=== PATIENT | female | born 1990 | race Caucasian/White ===

== ENCOUNTER 2016-10-22 20:28 | Inpatient (IN) | payer OTHER ==
[~2016-10-22] VITALS: Ht 162.6 cm; Wt 54.4 kg
[2016-10-23] VITALS (7 sets, daily range): BP systolic 93–116; BP diastolic 52–72
--- NOTE | 2016-10-23 01:00 | NUR ---
Pre-Assessment Note: Pt seen in intake office. Vitals noted: BP 116/72, HR 88, RR 18, SpO2 98%, T 97.8 Pt is in stable condition and will be admitted to [facility]. Unit rules and procedures explained. Pt verbalized understanding. Will continue assessment upon pt arrival
--- NOTE | 2016-10-23 01:20 | NUR ---
Admission Note: Pt arrived on the unit at 0120 and will be under the care of Dr. Barrios. Pt is a 26F, AOx4 without s/s of acute distress noted. Respirations even and unlabored. Pt denies any pain/discomfort at this time. Bowel sounds active x4 quadrants. Weight: 120lbs, Height: 5'4". Pt noted with NKA. Pt reported current Opiate/Benzo dependence: 1. Heroin: Pt uses at a rate of 1-2g of Heroin IV daily for the past year. Pt has been using Heroin for the past 8 years. Pt last used Heroin on 10/23/16 @ 0000. 2. Xanax: Pt uses at a rate of 2-6mg of Xanax PO daily for the past year. Pt has been using Xanax for the past 14 years. Pt last used Xanax on 10/22/16 @ 1000. 3. Methamphetamines: Pt uses at a rate of 0.5-1g of Methamphetamines daily for the past year. Pt has been using Methamphetamines for the past 4 years. Pt last used Methamphetamines on 10/23/16 @ 0000. Initial COWS was 2 and CIWA was 1. Pt stated that she had just used Heroin before admission and does not feel and withdrawal symptoms. Pt stated following regular diet at home. Pt brought no home medications. Pt stated she had no primary care physician, psychologist, or psychiatrist. Pt verbalized that she is in treatment because she is motivated to be clean for her future. Pt's past medical hx includes: Seizures (last in April 2016), Chlamydia (in 2010), Anxiety, Depression. Pt smokes 10 cigarettes a day. Pt's longest period of sobriety was 1.5 years back in 2014. Pt stated that she is currently not employed. Educated pt about current plan of care and verbalized support for pt. Encouraged pt to verbalize feelings. Bed in lowest position. Side rails up x2. Bed padded for safety. Pt denies any suicidal ideation at this time. All needs attended and met. Call light functioning and within reach. Will continue to monitor.
[2016-10-23 01:31] LABS: *URINE HCG, QUAL NEGATIVE (NEGATIVE)
[2016-10-23 01:52] LABS: *AMPHETAMINE, URINE POSITIVE (NEGATIVE); *BARBITURATE, URINE NEGATIVE (NEGATIVE); *CANNABINOID, URINE POSITIVE (NEGATIVE); *COCCAINE, URINE NEGATIVE (NEGATIVE); *OPIATE, URINE POSITIVE (NEGATIVE); *PHENCYCLIDINE SCREEN,URINE NEGATIVE (NEGATIVE)
[2016-10-23 01:55] LABS: ALANINE AMINOTRANSFERASE 401 U/L (14-59); ALKALINE PHOSPHATASE 112 U/L (50-136); AMYLASE 45 U/L (25-115); ASPARTATE AMINOTRANSFERASE 254 U/L (15-37); BILIRUBIN,TOTAL 0.7 mg/dL (0.2-1.0); CARBON DIOXIDE 31 mmol/L (21-32); CHLORIDE 102 mmol/L (98-107); CREATININE 0.9 mg/dL (0.6-1.3); ETHANOL < 3 MG/DL (0-0); GLUCOSE 104 mg/dL (74-106); LIPASE 169 U/L (73-393); POTASSIUM 3.2 mmol/L (3.5-5.1); TOTAL PROTEIN, SERUM 7.2 g/dL (6.4-8.2); UREA NITROGEN, BLOOD 12 mg/dL (7-18)
[2016-10-23 02:03] LABS: THYROID STIMULATING HORMONE 3.206 mIU/mL (0.358-3.740)
--- NOTE | 2016-10-23 07:05 | NUR ---
End of Shift Note: Pt is a 26F, admitted for Opiate/Benzo Dependence on 10/23/16. Pt is full code, on regular diet, and on fall/seizure precations. Pt noted with NKA. Pt reports hx of seizures, chlamydia, anxiety, depression. Pt slept for 3 hours. Respirations even and unlabored. Last COWS was 2 and CIWA was 1. No N/V noted during the shift. Fall and Sz precautions observed. Bed in lowest position. Side rails up x2. Call light functioning and within reach. All needs attended and met. Will endorse to day shift nurse.
--- NOTE | 2016-10-23 07:35 | NUR ---
START OF SHIFT Pt is a 26 yr old female, A&Ox3. Pt was admitted on 10/22/16 for Opiate/Benzo Dependence and is on PRN's for s/s of w/d. Pt is currently in bed resting with respirations even and unlabored. no acute distress noted. Skin is intact, warm and dry to touch. Safety precautions observed. Call light is within reach. Will continue to monitor.
[2016-10-23 08:28] LABS: BASOPHILS % (AUTO) 0.7 % (0.0-2.0); EOSINOPHILS # (AUTO) 0.2 K/uL (0.0-0.7); EOSINOPHILS % (AUTO) 2.8 % (0.0-7.0); HEMATOCRIT 32.5 % (37-47); HEMOGLOBIN 10.9 G/DL (12.0-16.0); LYMPHOCYTES # (AUTO) 1.8 K/UL (0.8-4.8); LYMPHOCYTES % (AUTO) 31.7 % (20.5-51.5); MEAN CORPUSCULAR HEMOGLOBIN 28.3 UUG (27.0-31.0); MEAN CORPUSCULAR HGB CONC 33 g/dL (32.0-37.0); MEAN CORPUSCULAR VOLUME 84.6 FL (81.0-99.0); MONOCYTES # (AUTO) 0.5 K/UL (0.1-1.30); MONOCYTES % (AUTO) 9.1 % (0.0-11.0); NEUTROPHILS # (AUTO) 3.2 K/UL (1.8-8.9); NEUTROPHILS % (AUTO) 55.7 % (38.5-71.5); PLATELET COUNT (AUTO) 206 K/UL (150-450); RED BLOOD CELL COUNT(AUTO) 3.84 MIL/UL (4.2-5.4); WHITE BLOOD COUNT (AUTO) 5.8 K/UL (4.0-11.2)
--- NOTE | 2016-10-23 09:00 | NUR ---
MEDICATION REFUSED Pt refused to take Multivitamin, Vit B1 and Folic acid at 0900. Pt was educated on medication regimen. Pt needs further education. Will continue to monitor.
--- NOTE | 2016-10-23 10:59 | NUR ---
PRN GIVEN Pt c/o feeling her "skin crawling" and is observed with increase anxiety and agitation. Pt is c/o abdominal cramping VS are WNL. CIWA score is 8. Ativan 1mg PO PRN and Bentyl 20mg PO PRN was given. Medication rola well. Will continue to monitor.
--- NOTE | 2016-10-23 12:00 | NUR ---
PRN RE-ASSESSMENT Ativan 1mg PO PRN and Bentyl PRN was effective. Pt is currently in bed resting with respirations even and unlabored. No acute distress noted. CIWA score is 2. Will continue to monitor
--- NOTE | 2016-10-23 13:59 | NUR ---
MEDICATION HELD Subutex 4mg and Ativan 2mg as scheduled at 1300 was held due to pt is too sedative. Pt is in bed sleeping with respirations even and unlabored. RR is 16. Reinsurance Clerk attempted several times to wake up pt but pt remained sleeping. Safety precautions observed. Will continue to monitor.
--- NOTE | 2016-10-23 18:55 | NUR ---
END OF SHIFT Pt is a 26 yr old female, A&Ox3. Pt was admitted on 10/22/16 for Opiate/Benzo Dependence and started on 4 day Ativan and 4 day Subutex taper as ordered. Ativan and Subutex was held at 1300 due to too sedative. Pt has been observed with increase drowsiness and remained in bed throughout the day. Last COWS score was 9 and CIWA score was 7 at 1600. Pt did not attended any group sessions. Pt is currently in bed resting with respirations even and unlabored. no acute distress noted. Skin is intact, warm and dry to touch. Safety precautions observed. Call light is within reach.
--- NOTE | 2016-10-23 20:00 | NUR ---
START OF SHIFT NOTE PATIENT IN HER ROOM RESTING, PATIENT STATES SHE'S TIRED, SHE REPORTS ANXIETY, SWEATING , NO N/V, DENIES ANY PAIN. PATIENT DID NOT ATTEND GROUPS. PATIENT STATES SHE WANTS TO SLEEP MORE. RECEIVED REPORT FROM DAY SHIFT NURSE. PATIENT IS A 26 YEAR OLD FEMALE ADMITTED FOR OPIATE/BENZO DEPENDENCE. PATIENT IS ON 5 DAY ATIVAN AND 5 DAY SUBUTEX TAPER. PATIENT REPORTS PMH OF SEIZURE, LAST ONE WAS ON APRIL. PATIENT IN HER ROOM MOST OF THE DAY. PATIENT'S 1300 SUBUTEX AND ATIVAN WAS HELD DUE TO PATIENT BEING SEDATED. VS STABLE. LAST COWS 7 AND CIWA 9. ON FALL/SEIZURE PRECAUTION. SAFETY MEASURES IN PLACE. CALL LIGHT IN REACH. WILL CONTINUE TO MONITOR.
[2016-10-24] VITALS: BP 127/80
[2016-10-24 04:00] VITALS: BP 88/50
--- NOTE | 2016-10-24 07:05 | NUR ---
START OF SHIFT NOTE PATIENT CONTINUE ON 5 DAY ATIVAN AND 5 DAY SUBUTEX TAPER, TOLERATED WELL. NO ADVERSE REACTION. PATIENT REPORTS PMH OF SEIZURE, LAST ONE WAS ON APRIL. PATIENT IN HER ROOM MOST OF THE SHIFT. PATIENT GOES OUT TO GET SNACKS. PATIENT DID NOT REQUIRE ANY PRN MEDICATION. ON FALL/SEIZURE PRECAUTION. SAFETY MEASURES IN PLACE. CALL LIGHT IN REACH. WILL CONTINUE TO MONITOR. SLEPT 8 HOURS. FLUID INTAKE1,900 ML. VOIDED X 1. NO BM. LAST COWS 1AND CIWA 1.
--- NOTE | 2016-10-24 07:06 | NUR ---
END OF SHIFT NOTE PATIENT CONTINUE ON 5 DAY ATIVAN AND 5 DAY SUBUTEX TAPER, TOLERATED WELL. NO ADVERSE REACTION. PATIENT REPORTS PMH OF SEIZURE, LAST ONE WAS ON APRIL. PATIENT IN HER ROOM MOST OF THE SHIFT. PATIENT GOES OUT TO GET SNACKS. PATIENT DID NOT REQUIRE ANY PRN MEDICATION. ON FALL/SEIZURE PRECAUTION. SAFETY MEASURES IN PLACE. CALL LIGHT IN REACH. WILL CONTINUE TO MONITOR. SLEPT 8 HOURS. FLUID INTAKE1,900 ML. VOIDED X 1. NO BM. LAST COWS 1 AND CIWA 1.
--- NOTE | 2016-10-24 07:35 | NUR ---
START OF SHIFT Pt is a 26 yr old female, A&Ox3. Pt was admitted on 10/22/16 for Opiate/Benzo Dependence and is on 5 day Ativan and 5 day Subutex taper as ordered. Received report from manufacturing shift supervisor nurse. Pt slept for 8 hours during the night. Last COWS was 1 CIWA score was 1 at 0000. Pt is currently in bed resting with respirations even and unlabored. no acute distress noted. Skin is intact, warm and dry to touch. Safety precautions observed. Call light is within reach. Will continue to monitor.
[2016-10-24 08:00] VITALS: BP 97/56
[2016-10-24 11:06] LABS: HEPATITIS B SURFACE AG Negative (Negative)
[2016-10-24 12:00] VITALS: BP 91/60
[2016-10-24 16:00] VITALS: BP 96/56
--- NOTE | 2016-10-24 19:33 | NUR ---
END OF SHIFT Pt is a 26 yr old female, A&Ox3. Pt was admitted on 10/22/16 for Opiate/Benzo Dependence and started on Ativan and Subutex taper as ordered. Pt has been observed with increase agitation throughout the day. Pt was observed attending group sessions. Pt has been cooperative with medication regimen. No PRN's were given during. Last COWS score was 6 and CIWA score was 5 at 1600. Skin is intact, warm and dry to touch. Safety precautions observed. Call light is within reach.
[2016-10-24 20:00] VITALS: BP 103/62
--- NOTE | 2016-10-24 20:00 | NUR ---
START OF SHIFT NOTE RECEIVED REPORT FROM DAY SHIFT NURSE. PATIENT IS A 26 YEAR OLD MALE ADMITTED FOR BENZO/OPIATE DEPENDENCE. PATIENT IS ON 5 DAY ATIVAN AND 5 DAY SUBUTEX TAPER. PATIENT'S DRUG OF CHOICE ARE HEROIN 1-2 GRAMS FOR A YEAR, XANAX 2-6 FOR A YEAR AND METH 0.5-1 GRAM FOR A YEAR. PATIENT DID NOT REQUIRE ANY PRN MEDICATION . LAST COWS 6 AND CIWA 5. PATIENT IN HER ROOM, RESTING AT THIS TIME. PATIENT NOTED EMOTIONAL , REPORTS ANXIETY, SWEATING , NECK PAIN 5/10.NO N/V AND NOTED FLUSHED. REDIRECTION PROVIDED. ON FALL/SEIZURE PRECAUTION. SAFETY MEASURES IN PLACE. CALL LIGHT IN REACH. WILL CONTINUE TO MONITOR.
--- NOTE | 2016-10-24 21:47 | NUR ---
PRN ROBAXIN ADMINISTRATION PATIENT C/O NECK PAIN 06/16. PRN ROBAXIN GIVEN. WILL MONITOR FOR EFFECTIVENESS
--- NOTE | 2016-10-24 22:47 | NUR ---
PRN ROBAXIN RE-ASSESSMENT PATIENT STATES ROBAXIN HELPFUL. PAIN LEVEL 2/10 AT THIS TIME. WILL CONTINUE TO MONITOR.
--- NOTE | 2016-10-25 | NUR ---
COWS/CIWA/VS PATIENT REFUSED VS. COWS/CIWA UNABLE TO ASSESS. RESPIRATION EVEN AND UNLABORED. RR. 15. SAFETY MEASURES IN PLACE. CALL LIGHT IN REACH. WILL CONTINUE TO MONITOR.
--- NOTE | 2016-10-25 04:00 | NUR ---
COWS/CIWA/VS PATIENT REFUSED VS. COWS/CIWA UNABLE TO ASSESS. RESPIRATION EVEN AND UNLABORED. RR. 14. SAFETY MEASURES IN PLACE. CALL LIGHT IN REACH. WILL CONTINUE TO MONITOR.
--- NOTE | 2016-10-25 07:15 | NUR ---
END OF SHIFT PATIENT IS A 26 YEAR OLD MALE ADMITTED FOR BENZO/OPIATE DEPENDENCE. PATIENT CONTINUE ON ATIVAN AND SUBUTEX TAPER, TOLERATED WELL AND NO ADVERSE REACTION. PATIENT IN ROOM MOST OF THE SHIFT. PATIENT NOTED EMOTIONAL , REPORTS ANXIETY, SWEATING , NECK PAIN 5/10.NO N/V AND NOTED FLUSHED BEGINNING OF SHIFT.PATIENT WAS GIVEN PRN ROBAXIN. PATIENT REMAIN FREE OF INJURY. ON FALL/SEIZURE PRECAUTION. SAFETY MEASURES IN PLACE. CALL LIGHT IN REACH. WILL CONTINUE TO MONITOR. SLEPT 5 HOURS. FLUID INTAKE 1,500 ML. VOIDED X 3. NO BM. LAST COWS 6 AND CIWA 4 .
--- NOTE | 2016-10-25 07:30 | NUR ---
START OF SHIFT Pt is a 26 yr old female, A&Ox3. Pt was admitted on 10/22/16 for Opiate/Benzo Dependence and is on 5 day Ativan and 5 day Subutex taper as ordered. Received report from welder 2nd shift nurse. Pt slept for 5 hours during the night. Pt received Robaxin PRN during the night. Medication was effective. Pt is currently in bed resting with respirations even and unlabored. no acute distress noted. Skin is intact, warm and dry to touch. Safety precautions observed. Call light is within reach. Will continue to monitor.
--- NOTE | 2016-10-25 07:32 | NUR ---
COWS/CIWA/VS PATIENT REFUSED VS. COWS/CIWA UNABLE TO ASSESS. RESPIRATION EVEN AND UNLABORED. RR. 14. SAFETY MEASURES IN PLACE. CALL LIGHT IN REACH. WILL CONTINUE TO MONITOR. Addendum: 10/25/16 at 0732 by CARLA CELESTE LVN ERROR CHARTING
[2016-10-25 08:00] VITALS: BP 108/74
[2016-10-25 12:00] VITALS: BP 90/52
[2016-10-25 16:00] VITALS: BP 102/61
--- NOTE | 2016-10-25 18:49 | NUR ---
END OF SHIFT Pt is a 26 yr old female, A&Ox3. Pt was admitted on 10/22/16 for Opiate/Benzo Dependence and is on Ativan and Subutex taper as ordered. Pt has been observed with increase agitation throughout the day. Pt refused to attend group sessions and remains in bed throughout the day. Pt is cooperative with medication regimen. No PRN's were given during the day. Last COWS score was 4 and CIWA score was 3 at 1600. Skin is intact, warm and dry to touch. No tremors seen or felt. Safety precautions observed. Call light is within reach.
[2016-10-25 20:00] VITALS: BP 103/60
--- NOTE | 2016-10-25 20:00 | NUR ---
START OF SHIFT NOTE RECEIVED REPORT FROM DAY SHIFT NURSE. CONTINUE ON ATIVAN AND SUBUTEX TAPER, TOLERATED AND NO ADVERSE REACTION. PATIENT REPORTS SEIZURE HISTORY , LAST ONE WAS APRIL 2016. SKIN INTACT. PATIENT DID NOT REQUIRE ANY PRN MEDICATION. LAST COWS 4 AND CIWA 3. PATIENT IN HER ROOM. PATIENT REPORTS ANXIETY, SWEATING, ABDOMINAL CRAMPING, NOTED FLUSHED, NO N/V AND BACK PAIN 5/10. PATIENT ON FALL/SEIZURE PRECAUTION. SAFETY MEASURES IN PLACE. CALL LIGHT IN REACH. WILL CONTINUE TO MONITOR.
--- NOTE | 2016-10-25 20:12 | NUR ---
PRN ROBAXIN AND BENTYL ADMINISTRATION PATIENT C/O BACK PAIN AND ABDOMINAL CRAMPING . PRN ROBAXIN AND BENTYL GIVEN. WILL MONITOR FORE EFFECTIVENESS
--- NOTE | 2016-10-25 21:25 | NUR ---
PRN ROBAXIN AND BENTYL RE-ASSESSMENT PATIENT STATES ROBAXIN AND BENTYL HELPFUL AND EFFECTIVE. DENIES ANY PAIN AT THIS TIME AND LESS ABDOMINAL CRAMPING
--- NOTE | 2016-10-26 | NUR ---
CIWA/VS PATIENT REFUSED VS. CIWA UNABLE TO ASSESS. RESPIRATION EVEN AND UNLABORED. RR 15. SAFETY MEASURES IN PLACE. CALL LIGHT IN REACH. WILL CONTINUE TO MONITOR. Addendum: 10/26/16 at 0707 by CRALA CELESTE LVN COWS UNABLE TO ASSESS . RR 14
--- NOTE | 2016-10-26 04:00 | NUR ---
CIWA/VS PATIENT REFUSED VS. CIWA UNABLE TO ASSESS. RESPIRATION EVEN AND UNLABORED. RR 14. SAFETY MEASURES IN PLACE. CALL LIGHT IN REACH. WILL CONTINUE TO MONITOR. Addendum: 10/26/16 at 0707 by CARLA CELESTE LVN COWS UNABLE TO ASSESS.
--- NOTE | 2016-10-26 07:03 | NUR ---
END OF SHIFT NOTE PATIENT CONTINUE ON ATIVAN AND SUBUTEX TAPER, TOLERATED AND NO ADVERSE REACTION. PATIENT REPORTS SEIZURE HISTORY , LAST ONE WAS APRIL 2016. SKIN INTACT. PATIENT COMPLIANT WITH MEDICATION . CONTINUE TO ENCOURAGE TO PARTICIPATE IN THERAPEUTIC PLAN. PATIENT WAS GIVEN PRN ROBAXIN AND BENTYL. ON FALL/SEIZURE PRECAUTION. SAFETY MEASURES IN PLACE. CALL LIGHT IN REACH. WILL CONTINUE TO MONITOR. SLEPT 9 HOURS. FLUID INTAKE 591 ML. VOIDED X 1 . BM X 1. LAST COWS 5 AND CIWA 3.
--- NOTE | 2016-10-26 07:30 | NUR ---
Start of shift note; Received report from night nurse. Patient is a 26 year old female admitted on 10/22/16 for Opiate /Benzo dependence. Patient was placed on 5 day Ativan and 5 day Subutex taper. Patient is on full code status, regular diet, NKA. Patient reported history of seizure , chlamydia, anxiety, depression. Patient is on fall and seizure precautions. Bed in lowest position, call light within reach. Will continue to monitor patient.
[2016-10-26 08:00] VITALS: BP 98/68
[2016-10-26 12:00] VITALS: BP 117/65
[2016-10-26 16:00] VITALS: BP 104/78
--- NOTE | 2016-10-26 18:26 | NUR ---
End of shift note; Patient is AOX4. Patient is a 26 year old female admitted on 10/22/16 for Opiate /Benzo dependence. Patient was placed on 5 day Ativan and 5 day Subutex taper. Patient is on full code status, regular diet, NKA. Patient reported history of seizure , chlamydia, anxiety, depression. Patient is on fall and seizure precautions. Bed in lowest position, call light within reach. Patient remained compliant with treatment plan and medication regime. All safety measures secured. Met all needs.
--- NOTE | 2016-10-26 19:45 | NUR ---
START OF SHIFT Received report from day shift nurse. Pt is lying in bed resting. She is a 26 yo female admitted to [facility] on 10/23 for Opiate and BZD dependence. She is A&O x4 and ambulatory. NKA, full code status and on a regular diet. She has a PMH of seizures, Chlamydia, anxiety, and depression. On admission she reported using heroin 1-2 grams per day, Xanax 2-6mg per day, and methamphetamine 0.5-1 gram per day. 5 day Ativan and 5 day Subutex tapers started 10/23. She reports nausea and anxiety. She has a flat affect and depressed mood. Fall and seizure precautions in place. Bed is down with call light in reach.
[2016-10-26 20:00] VITALS: BP 103/62
--- NOTE | 2016-10-26 21:15 | NUR ---
PRN Zofran Pt c/o nausea without vomiting. PRN Zofran administered.
--- NOTE | 2016-10-26 21:45 | NUR ---
PRN Zofran reassessment PRN Zofran effective. Pt reports nausea is relieved.
[2016-10-27] VITALS: BP 95/59
--- NOTE | 2016-10-27 | NUR ---
0000 COWS and CIWA deferred COWS and CIWA ordered Q4HWA. Pt is lying in bed resting with eyes closed. Vital signs obtained. Safety measures in place.
[2016-10-27 04:00] VITALS: BP 94/57
--- NOTE | 2016-10-27 07:14 | NUR ---
END OF SHIFT Report provided to day shift nurse day shift nurse. Pt is lying in bed resting. She is a 26 yo female admitted to [facility] [place] on 10/23 for Opiate and BZD dependence. She is A&O x4 and ambulatory. NKA, full code status and on a regular diet. She has a PMH of seizures, Chlamydia, anxiety, and depression. On admission she reported using heroin 1-2 grams per day, Xanax 2-6mg per day, and methamphetamine 0.5-1 gram per day. 5 day Ativan and 5 day Subutex tapers started 10/23. PRN Zofran administered. Last COWS 6 and CIWA 5. She drank 796mL and slept for 8 hours. Fall and seizure precautions in place. Bed is down with call light in reach.
--- NOTE | 2016-10-27 07:30 | NUR ---
Start of shift note; Received report from night nurse. Patient is a 26 year old female admitted on 10/22/16 for Opiate /Benzo dependence. Patient was placed on 5 day Ativan and 5 day Subutex taper. Patient is on full code status, regular diet, NKA. Patient reported history of seizure , chlamydia, anxiety, depression. Patient is on fall and seizure precautions. Bed in lowest position, call light within reach. Patient slept for 8 hours. Will continue to monitor patient.
[2016-10-27 08:00] VITALS: BP 102/76
[2016-10-27 12:00] VITALS: BP 100/67
[2016-10-27 16:00] VITALS: BP 92/62
--- NOTE | 2016-10-27 16:50 | NUR ---
Nurse note and MD communication; Patient eloped and left the hospital without her belongings. Encouraged patient to come back to premises by CHEESEMAKER, nurses and hospital staff. Patient still decided to leave despite explanation of consequences of elopement. MD was notified.
== END 2016-10-27 16:45 | disposition left against medical advice (07) | DRG 895 ==
LOC: SRC 23:53
PROVIDERS: ADMIT Internal Medicine; ATTEND Internal Medicine
PROC: HZ2ZZZZ Detoxification Services for Substance Abuse Treatment (ICD-10-PCS; principal; 2016-10-22)
PROC: HZ31ZZZ Individual Counseling for Substance Abuse Treatment, Behavioral (ICD-10-PCS; 2016-10-25)
DX: F11.23 Opioid dependence with withdrawal (principal); F32.9 Major depressive disorder, single episode, unspecified; B19.20 Unspecified viral hepatitis C without hepatic coma; E87.6 Hypokalemia; F15.23 Other stimulant dependence with withdrawal; F17.210 Nicotine dependence, cigarettes, uncomplicated; F41.9 Anxiety disorder, unspecified; F13.230 Sedative, hypnotic or anxiolytic dependence with withdrawal, uncomplicated; D64.9 Anemia, unspecified; F12.90 Cannabis use, unspecified, uncomplicated
CPT/HCPCS: 36415; 80307; 80324; 80349; 80361; 83690; 83735; 84443; 84703; 85025; 86580; 86592; 86705; 86803; 87340; 87806; G0480; Q0162